=== PATIENT | female | born 2005 | race Two or more races ===

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

== ENCOUNTER 2025-09-24 09:10 | Emergency (ER) | payer OTHER, SELFPAY ==
--- NOTE | ~2025-09-24 | XR_ITS ---
EXAMINATION: XR HIP, LEFT CLINICAL INFORMATION: pain, injury COMPARISON: None available. TECHNIQUE: Two views of the left hip. AP pelvis FINDINGS: There is mild loss of left hip joint space with deformity of left femoral head. There is diffuse osteopenia involving left acetabulum and left proximal femur. No visible acute fracture, lytic or sclerotic process seen. The soft tissues are normal. Visualized right hip and rest of the pelvis is normal. XR/XR hip LT w PEL1V IMPRESSION: Left hip deformity likely mild hip dysplasia, congenital. No visible acute fracture or dislocation seen. Electronically signed by: Josef Gallardo MD 09/24/2025 10:34 AM [facility]
[2025-09-24 09:13] VITALS: BP 143/81; PULSE 87; RESP 16; TEMP 36.1; O2SAT 100; BMI 40.2
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
--- OUTSIDE RECORDS SUMMARY | 2025-09-24 09:32 | XMS_ITS | Clinical Summary ---
Author Organization [facility] Address [address] [place] [id number] Phone Care Team Providers Care Parimutuel Ticket Seller Name Role Phone Kyle Carrizales MD Primary Care Provider [phone]- [phone] Allergies No known active allergies Surgical History Surgery Date Site/Laterality Comments CHOLECYSTECTOMY Social History Tobacco Use Types Packs/Day Years Used Date Smoking Tobacco: Never Smokeless Tobacco: Never Tobacco Cessation:Counseling Given: Not Answered Alcohol Use Standard Drinks/Week Comments Never 0 (1 standard drink = 0.6 oz pur e alcohol) Comments Unknown Sex and Gender Information Value Date Recorded Sex Assigned at Female 12/23/2024 6:05 AM EDT Legal Sex Female 2:07 AM EST Gender Identity Female 12/23/2024 6:05 AM EDT Sexual Orientation Straight 12/23/2024 6: 05 AM EDT Last Filed Vital Signs Vital Sign Reading Time Taken Comments Blood Pressure 124/84 12/23/2024 7:09 AM EDT Pulse 94 12/23/2024 7:09 AM EDT Temperature 37.1 C (98.8 F) 12/23/2024 7:09 AM EDT Respiratory Rate 18 12/23/2024 7:09 AM EDT Oxygen Saturation 100% 12/23/2024 7:09 AM EDT Inhaled Oxygen Concentration - - Weight 90.7 kg (200 lb) 12/23/2024 4:59 AM EDT Height 154.9 cm (5' 1 ) 12/23/2024 4:59 AM EDT Body Mass Index 37.79 12/23/2024 4:59 AM EDT Plan of Treatment Upcoming Encounters Date Type Department Care Team (Late st Contact Info) Description 03/12/2026 11:00 AM EDT Office Visit Adult Medicine [facility] [address] [facility] [place] [address] Kyle Carrizales MD [address] [facility] [place] [address] Health Maintenance Due Date Last Done Comments Gonorrhea/Chlamydia Screening 2004 Meningococcal B Vaccine (1 of 2 - Standard) 2020 Annual Well Child Visit (3-21 years old) 09/04/2022 HIV Screening 09/04/2022 Hepatitis C Screening 09/04/2022 Social Influencers of Health Screening 09/04/2022 Depression Screening 10/02/2024 COVID-19 Vaccine ( season) 2025 06/24/2022, 04/01/2021, 03/11/2021 Influenza Vaccine (#1) 2025 , 06/24/2022, 08/06/2020, Additional history exists DTaP,Tdap,and Td Vaccines (7 - Td or Tdap) 12/20/2026 12/20/2016, 11/06/2008, 04/24/2006, Additional history exists RSV Immunization Adult Patients (1 - 1-dose 75+ series) 2079 Hepatitis B Vaccines Completed 04/18/2005, 2004, 2004 IPV Vaccines Completed 11/06/2008, 04/02, 04/18/2005, Additional history exists MMR Vaccines Completed 06/08/2012, 10/26/2005 HPV Vaccines Completed 05/30/2017, 01/28/2015 Varicella Vaccines Completed 12/14/2017, 06/08/2012 Meningococcal ACWY Vaccine Completed 06/24, 06/24/2022, 12/20/2016 HIB Vaccines Aged Out No longer eligi ble based on patient's age to complete this topic Hepatitis A Vaccines Aged Out No long er eligible based on patient's age to complete this topic Pneumococcal Vaccine: Pediatrics (0 to 5 Years) and At-Risk Patients (6 to 49 Years) Aged Out No longer eligible based on patient's age to complete this topic RSV Immunization Patients Under 20 months Aged Out No longer eligible based on patient's age to complete this topic Insurance [facility] [employer] [place] Care Teams Parimutuel Ticket Seller Relationship Specialty Start Date End Date Kyle Carrizales MD [address] [facility] [place] [address] PCP - General Internal Medicine 08/15/25
--- OUTSIDE RECORDS SUMMARY | 2025-09-24 09:32 | XMS_ITS | Clinical Summary ---
Author Organization [facility] Address [address] [place] [address] Care Team Providers Care Hunting Guide Name Role Phone Brook Amaya MD Primary Care Provider [phone]- [phone] Allergies No known active allergies Medications 10/21, 28, 1 mg-20 mcg (21)/75 mg (7) tablet TOME LUISANA TABLETA POR V A ORAL TODOS LOS D 01/14/2023 Active spironolactone (Aldactone) 50 mg tablet Take 50 mg by mouth. 01/04/2023 Active multivitamin tablet Take 1 tablet by mouth in the morning. Active Active Problems Problem Noted Date Diagnosed Date Hidradenitis suppurativa 08/08/2025 PCOS (polycystic ovarian syndrome) 08/08/2025 Encounters Date Type Department Care Team Description 09/10/[address] [address] Elodia Wilkerson MSW 08/08/2025 1:44 PM EST - 08/08/2025 11:59 PM EST Hospital Encounter [address] [address] Pain of left hip; Avascular necrosis of left femur (HCC) Discharge Disposition: Discharged to Home or Self Care (Routine Discharge) 08/08/2025 1:30 PM EST Office Visit [address] [address] Bruce Reynolds MD Pain of left hip (Primary Dx); Avascular necrosis of left femur (HCC) 08/08/2025 Social Work [facility] [address] [place] [address] Yumiko De Leon from Last 3 Months Social History Tobacco Use Types Packs/Day Years Used Date Smoking Tobacco: Never Assessed Comments No Sex and Gender Information Value Date Recorded Sex Assigned at Female 07/11/2022 8:37 PM EDT Legal Sex Female 8:37 PM EDT Gender Identity Not on file Sexual Orientation Not on file Last Filed Vital Signs Vital Sign Reading Time Taken Comments Blood Pressure - - Pulse - - Temperature - - Respiratory Rate - - Oxygen Saturation - - Inhaled Oxygen Concentration - - Weight 96.7 kg (213 lb 3 oz) 08/08/2025 1:27 PM EST Height 155 cm (5' 1.02 ) 08/08/2025 1:27 PM EST Body Mass Index 40.25 08/08/2025 1:27 PM EST Plan of Treatment Not on file Procedures Procedure Name Priority Date/Time Associated Diagnosis Comments XR HIPS BILATERAL 2 VIEWS WITH OR WITHOUT PELVIS Routine 08/08/2025 1:52 PM EST Pain of left hip Avascular necrosis of left femur (HCC) from Last 3 Months Results * XR hips bilateral 2 views with or without pelvis (08/08/2025 1:52 PM EST) Anatomical Region Laterality Modality Lower Extremities, Hip Bilateral Digital R adiography Narrative 08/08/2025 2:45 PM EST EXAM: XR HIPS BILATERAL 2 VIEWS WITH OR WITHOUT PELVIS LOCATION: [facility] DATE: 08/08/2025 INDICATION: AVN left hip COMPARISON: 04/12/2024 XR hip left 2 or 3 views and 02/10/2023 XR hips bilateral 3 or 4 views FINDINGS/CONCLUSION: 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 There is incomplete femoral head containment on the left. Kristi migration index measures 50%. Femoral head containment is improved in the frog leg lateral position. 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 There is incomplete femoral head containment on the left. Kristi migrationindex measures 50%. Femoral head containment is improved in the frog leglateral position. This report was electronically interpreted by: Parris Ho MD on08/08/2025 1:45 PM MEDIA STRATEGIST Caroline HARO IMG XR PROCEDURES Final Result from Last 3 Months Insurance [facility] 3 Care Teams Hunting Guide Relationship Specialty Start Date End Date Brook Amaya MD [address] [place] [address] PCP - General 12/13/21
[2025-09-24 11:39] VITALS: BP 143/81; PULSE 87; RESP 16; TEMP 36.1; O2SAT 100
== END 2025-09-24 11:39 | disposition home or self-care (01) ==
PROVIDERS: Emergency Provider Emergency Medicine
DX: Z04.1 Encounter for examination and observation following transport accident (principal); M25.552 Pain in left hip
CPT/HCPCS: 73502; 99282; 99283

== ENCOUNTER → 2025-09-24 09:37 | Outpatient (BNV) | payer OTHER, SELFPAY | PROVIDERS: Emergency Provider Emergency Medicine; Visit Provider Radiology Diagnostic Radiology | DX: M25.552 Pain in left hip (principal); V89.2XXA Person injured in unspecified motor-vehicle accident, traffic, initial encounter | CPT/HCPCS: 73502 ==